=== PATIENT | male | born 1970 | race Caucasian/White ===

== ENCOUNTER 2017-11-10 06:02 | Day surgery (SDC) | payer OTHER, SELFPAY ==
[2017-11-10] VITALS (7 sets, daily range): BP systolic 126–151; BP diastolic 79–104; PULSE 68–98; RESP 16–18; TEMP 36.1–37.2; O2SAT 94–99; BMI 33.9
--- NOTE | 2017-11-10 | HERN_PTH ---
PATIENT: ROGER WELLS LOC: [facility] [place] U[place][id number] AGE/SX: 47/M ROOM: RE11/10/[address]: Dr. Vic Mcgrath MD : [id number] BED: DIS: 11/10/2017 SPEC #: [id number] RECD: 11/10/17 13:06 STATUS: CELESTINO TIFF #: [id number] ALLEN: 11/10/17 00:[address]: Vic Mcgrath DEPT: SURGICAL PATHOLOGY RECD BY: Reji Rae ENTERED: 11/10/17 13:06 SP TYPE: Hernia OTHR DR: Dr. Aiden Saez MD Tissues: HERNIA Procedures: Surgery Specimen Level II HEADER OPERATION: Hernia, incisional at umbilicus, mesh, repair PRE-OP DIAGNOSIS: Incisional hernia without obstruction or gangrene TISSUE SUBMITTED: Hernia sac and contents MICROSCOPIC DIAGNOSIS Hernia sac and contents, excision: Hernia sac with fibrosis, benign histiocytic proliferation, focal. Mild chronic inflammation. AM:shaina 11/12/17 MICROSCOPIC DESCRIPTION Slides are reviewed. GROSS DESCRIPTION Received in fixative is one container labeled with the patient's name and designated hernia sac and contents. The specimen consists of an irregular fragment of yellow-pink fibrofatty tissue measuring 2.2 x 2 x 1.3 cm. Sections reveal homogenous yellow cut surface. Sales Specialist section is submitted in one cassette. / AM:shaina 11/10/17 TC:3 CPT: 27429
--- NOTE | 2017-11-10 06:18 | EKG12_ITS ---
Test Reason : PREOP Blood Pressure : / mmHG Vent. Rate : 070 BPM Atrial Rate : 070 BPM P-R Int : 188 ms QRS Dur : 094 ms QT Int : 402 ms P-R-T Axes : 023 -26 001 degrees QTc Int : 434 ms Normal sinus rhythm Normal ECG No previous ECGs available Confirmed by CARLI DIXON, LENY ([id number]), editorial manager ELIZABETH WAGONER ([id number]) on 11/17/2017 1:09:41 PM Referred By: Vic Mcgrath Confirmed By:LENY BOYCE MD
[2017-11-10 06:45] LABS: Hematocrit 42.9 % (40-54); Hemoglobin 14.2 g/dl (13.0-16.5); Mean Corp Hgb Conc 33.1 g/gl (32-36); Mean Corpuscular Hgb 26.5 pg (27.0-32.0); Mean Corpuscular Volume 80.2 fL (80-94); Mean Platelet Vol. 9.2 fl (6.2-12.0); Platelet Count 240 K/mm3 (150-450); RBC Distribution Width CV 13.5 % (11.6-14.6); RBC Distribution Width SD 39.2 fl (35.1-43.9); Red Blood Count 5.35 M/mm3 (4.6-6.2)
[2017-11-10 06:51] LABS: Anion Gap 7 (5-15); BUN 10 mg/dL (7-18); BUN/Creat Ratio 9.7 RATIO (10-20); Calcium,Total 7.8 mg/dL (8.5-10.1); Chloride 109 mmol/L (98-107); Creatinine, Serum 1.03 mg/dL (0.70-1.30); EST Glomerular Filtration Rate 82 mL/min (>60); Est Glom Filt Rate - Afr Amer 99 mL/min (>60); Estimated Creatinine Clearance 81.11 ml/min; Glucose 97 mg/dL (74-106); Potassium 3.5 mmol/L (3.5-5.1); Sodium Level 142 mmol/L (136-145)
[2017-11-10 06:52] LABS: Scan Indicated on CBC? Y/N NO
[2017-11-10] MEDS: Cefazolin 2 GM in 0.9% Normal Saline 100 ML IV (08:10)
--- NOTE | 2017-11-10 08:14 | PCM.DC.GS ---
Discharge Diet: Light diet - advance as tolerated - if you have questions about your diet instructions, please talk to you doctor. Discharge Activity: May Not Drive - for 1 week or while taking narcotic pain medicine. May shower in (days): 1 Lifting Restrictions: 10 pounds Call your doctor if your incision/area has: Continuous Slow Oozing, Sudden Increased Bleeding, Increased Pain/ Swelling, Increased Redness, Foul Smelling Discharge Call your doctor if you observe: Fever of 101 or Higher Suture Line Care: Avoid Pulling/Pushing, Avoid Pinching/Bending Additional Dressing/Incision Instructions:: Change or remove dressing in 4 days. Leave steri-strips in place for 1 week. Allergies/Adverse Reactions: Allergies No Known Allergies Allergy (Verified 10/27/17 15:13) Medications to take at Discharge Citalopram [Celexa] 40 mg PO DAILY 03/29/16 Lisinopril [Zestril] 5 mg PO DAILY 03/29/16 Hydrocodone Bitart/Apap 5-325 [[place] 5MG-325MG] 1 tablet PO Q6H PRN PRN 3 Days #10 tablet 11/10/17 The following prescriptions were given: Hydrocodone Bitart/Apap 5-325 [[place] 5MG-325MG] 1 tablet PO Q6H PRN PRN 3 Days #10 tablet PRN Reason: Pain Primary Care Physician: Aiden Saez MD [Primary Care Provider] - Test Results: Please Follow Up With: Vic Mcgrath MD - [phone] When: Call to make an appointment to be seen in about 10 days.
[2017-11-10] MEDS: Bupivacaine Mpf 0.5% 30 ML VIAL (08:29)
--- NOTE | 2017-11-10 08:54 | PCM.OPRPT ---
Problem List (1) Incisional hernia Status: Acute Qualifiers: Report of Operation Date of Procedure: 11/10/17 Pre-Operative Diagnosis: Ventral incisional umbilical hernia Post-Operative Diagnosis: Same Surgery/Procedure Performed:: Ventral incisional umbilical herniorrhaphy with 4.[address] mesh reference #[id number]. Lot number [id number]. Expiry date 12/05/2018. Description of Surgical Findings:: Timeout and informed consent was obtained. 47-year-old gent was taken the operating. He was placed on the table. He underwent general endotracheal intubation and anesthesia. The abdomen was sterilely prepped draped. Ancef 2 g given intravenously preoperatively. He had a previous transverse infraumbilical incision. The skin scar was sharply excised. It was inspected consistent with scar and was discarded. Sharp dissection carried down through the substance tissue. The hernia was identified it had incarcerated preperitoneal fatty contents. This was dissected free and submitted as a specimen. The defect measures approximately a centimeter and a half in diameter. A 4.[address] mesh was inserted. It nicely unfolded. The tails were secured with interrupted 0 Nurolon. The fascia was approximated with the same. The fascia and subcu tissues were anesthetized with 0.5% Marcaine a total of 20 cc was used. The subdermal edges were approximated with interrupted 4 Monocryl subdermal stitches. Topical glue then cottonball Telfa OpSite dressing applied. Sponge and instrument and needle counts were reported the surgeon to be correct. Specimen includes hernia and sac and contents. Blood loss minimal. Drains none. Vic Mcgrath M.D., F.A.C.S. Type of Anesthesia:: General Anesthesiologist: Tang Eric
--- NOTE | 2017-11-10 08:59 | OP.PCM_ITS ---
Problem List (1) Incisional hernia Status: Acute Qualifiers: Report of Operation Date of Procedure: 11/10/17 Pre-Operative Diagnosis: Ventral incisional umbilical hernia Post-Operative Diagnosis: Same Surgery/Procedure Performed:: Ventral incisional umbilical herniorrhaphy with 4.[address] mesh reference #[id number]. Lot number [id number]. Expiry date 12/05/2018. Description of Surgical Findings:: Timeout and informed consent was obtained. 47-year-old gent was taken the operating. He was placed on the table. He underwent general endotracheal intubation and anesthesia. The abdomen was sterilely prepped draped. Ancef 2 g given intravenously preoperatively. He had a previous transverse infraumbilical incision. The skin scar was sharply excised. It was inspected consistent with scar and was discarded. Sharp dissection carried down through the substance tissue. The hernia was identified it had incarcerated preperitoneal fatty contents. This was dissected free and submitted as a specimen. The defect measures approximately a centimeter and a half in diameter. A 4.[address] mesh was inserted. It nicely unfolded. The tails were secured with interrupted 0 Nurolon. The fascia was approximated with the same. The fascia and subcu tissues were anesthetized with 0.5% Marcaine a total of 20 cc was used. The subdermal edges were approximated with interrupted 4 Monocryl subdermal stitches. Topical glue then cottonball Telfa OpSite dressing applied. Sponge and instrument and needle counts were reported the surgeon to be correct. Specimen includes hernia and sac and contents. Blood loss minimal. Drains none. Vic Mcgrath M.D., F.A.C.S. Type of Anesthesia:: General Anesthesiologist: Tang Eric
== END 2017-11-10 10:27 | disposition home or self-care (01) ==
LOC: SDC 06:02 → AC 06:03
PROVIDERS: Family Provider Family Medicine; PCP Family Medicine; Visit Provider Surgery
PROC: (CPT 49560; principal; 2017-11-10 07:45)
DX: K43.2 Incisional hernia without obstruction or gangrene (principal); F32.9 Major depressive disorder, single episode, unspecified; F41.9 Anxiety disorder, unspecified; F43.10 Post-traumatic stress disorder, unspecified; Z79.899 Other long term (current) drug therapy; I10 Essential (primary) hypertension; K21.9 Gastro-esophageal reflux disease without esophagitis; M19.90 Unspecified osteoarthritis, unspecified site; F17.290 Nicotine dependence, other tobacco product, uncomplicated
CPT/HCPCS: 00832; 49560; 80048; 85027; 88302; 93005; J7120; C1781; J2405

== ENCOUNTER 2023-02-28 20:41 | Emergency (ER) | payer OTHER, MEDICARE, SELFPAY ==
[2023-02-28 20:42] VITALS: BP 152/77; PULSE 94; RESP 15; TEMP 36.8; O2SAT 97; BMI 38.5
--- NOTE | 2023-02-28 20:52 | EDS_ITS ---
HPI <Edgard Marinelli MD - Last Filed: 02/28/23 21:42> History of Present Illness Chief Complaint: Lower Extremity Injury Narrative Narrative: 52-year-old male past medical history of hypertension, presents with laceration to his right anterior tibial area that he sustained approximately 5 hours ago. He states he was outside doing yard work and using a machete. The tip of the blade accidentally entered his lower extremity. He went inside, cleansed the area, and also shaved his leg in order to try and get a waterproof Band-Aid on it but it continued to bleed. His last tetanus immunization was last year. He denies other injury. He presents because of the laceration on his right lower extremity. He does not take any blood thinners. Tetanus Immunization: <5 years (Last year) PFS <Edgard Marinelli MD - Last Filed: 02/28/23 21:42> FOR[facility]LY [facility] Medical History Anxiety Chronic back pain Depression GERD (gastroesophageal reflux disease) HTN (hypertension) Incisional hernia Osteoarthritis Home Medications citalopram 20 mg tablet 40 mg PO DAILY 03/29/16 [History Last Taken 03/28/16] lisinopril 5 mg tablet 40 mg PO DAILY 03/29/16 [History Last Taken 12/02/16 10:00 5 MG] Allergy/AdvReac Type Severity Reaction Status Date / Time No Known Allergies Allergy Verified 02/28/23 20:44 Family History Mother Asthma Surgical History S/P appendectomy (~03/2016) s/p lipoma removal S/P rotator cuff repair Social History Smoking Status: Former smoker ROS <Edgard Marinelli MD - Last Filed: 02/28/23 21:42> ROS ED ROS Narrative Constitutional: No fever, no chills. HEENT: No sore throat. No neck pain. No loss of vision. No rhinorrhea. Cardiovascular: No chest pain. No palpitations. No pedal edema. Respiratory: No cough, no shortness of breath. Abdominal: No abdominal pain. No nausea. No vomiting. Genitourinary: No dysuria. No hematuria. Musculoskeletal: No myalgias. No arthralgias. Neurologic: No headaches. No dizziness. No lightheadedness. Skin: No rash. No change in color. Laceration to right lower extremity distal to the kneecap. Psychiatric: No depression. No anxiety. EXAM <Edgard Marinelli MD - Last Filed: 02/28/23 21:42> Physical Exam Narrative Exam Narrative: Afebrile. Vital signs noted. HEENT: Normocephalic. Atraumatic. PERRL, EOMI. Neck soft and supple. No point tenderness or step off. Cardiovascular: Regular rate and rhythm. No murmurs, rubs, or gallops appreciated. Respiratory: No tachypnea. Lungs clear to auscultation bilaterally. Gastrointestinal: Abdomen soft, nontender, with normoactive bowel sounds. No rebound or guarding. Neurological: Awake. Alert. Nonfocal, nonlateralizing. Skin: No rash. Normal color. No pallor. 1.7 cm laceration to anterior tibial area on right lower extremity, more to the medial aspect. No active bleeding. Musculoskeletal: No pedal edema. Full range of motion extremities. Const Vital Signs: 02/28/23 20:42 Temperature 98.2 F Temperature Source Temporal Pulse Rate 94 Respiratory Rate 15 Blood Pressure 152/77 H Blood Pressure Mean 102 Pulse Ox 97 Oxygen Delivery Method Room Air <Dr. Dean Priest MD - Last Filed: 02/28/23 21:34> Physical Exam Const Vital Signs: 02/28/23 20:42 Temperature 98.2 F Temperature Source Temporal Pulse Rate 94 Respiratory Rate 15 Blood Pressure 152/77 H Blood Pressure Mean 102 Pulse Ox 97 Oxygen Delivery Method Room Air [facility] <Edgard Marinelli MD - Last Filed: 02/28/23 21:42> [facility] Narrative Medical decision making narrative: Patient has a laceration to his right lower extremity. His tetanus immunization is current. He is within the 6-hour window for closure. I do not feel x-rays are indicated as I do not feel that it struck bone and is more of a soft tissue injury. He is neurovascularly intact distally on examination. He was informed of the risk of infection and scarring and acknowledges an understanding. Wound closure performed by Dr. Alexis Priest. See procedure note for details. Patient will be discharged to follow-up with his primary care physician for yin ture removal in 7 to 10 days. I do not feel he requires narcotic analgesics, or antibiotics. Disposition is discharged home in stable condition. Differential Diagnosis Differential Diagnosis: Not applicable. Procedures <Dr. Dean Priest MD - Last Filed: 02/28/23 21:34> Lacerations Right lower leg laceration repair:: Length: 1.5 in Depth: Sub Q Shape: Linear Laceration repair: Lidocaine, Local and Skin sutures Number of Sutures/Procious: 3 Suture Information: Ethilon, Simple and 4-0 Comment: Right lower leg laceration. 1/2 to 2 inches in length. Involve the skin and subcu tissue. Local anesthetized with lidocaine. Cleaned with Shur-Clens. Washed and irrigated with saline. Explored. No foreign body. No signs of infection. Closed using 3 simple interrupted 4-0 Ethilon sutures. Proper hemostasis wound closure obtained. Patient tolerated procedure well. He was instructed on wound care and suture removal. Discharge Plan Triage Chief Complaint: Lower Extremity Injury ED Provider: Edgard Marinelli Dx/Rx/DC Orders Clinical Impression: Laceration of right lower leg Instructions: ED Laceration Extremity Prescriptions: No Action citalopram 20 MG tablet 40 mg PO DAILY Patient Comments: antidepressant lisinopril 5 MG tablet 40 mg PO DAILY Patient Comments: blood pressure Primary Care Provider: Aiden Saez Referrals: Aiden Saez MD [Primary Care Provider] - 10 Day for suture removal Activity Restrictions/Additional Instructions: Keep the area dry and clean. If it gets wet just dry off thoroughly. Stitches out in 10 days. Keep the area clean. Clean daily with soap and water. Will peroxide and water. Apply antibiotic ointment. Watch for signs of infection if seen return here. Disposition Disposition: Home, Self Care
[2023-02-28] MEDS: Lidocaine 1% (20 ml mdv) 20 ML Vial INFILT (20:58)
== END 2023-02-28 21:42 | disposition home or self-care (01) ==
PROVIDERS: Emergency Provider Emergency Medicine; PCP Family Medicine; Visit Provider Emergency Medicine
DX: S81.811A Laceration without foreign body, right lower leg, initial encounter (principal); Z87.891 Personal history of nicotine dependence; I10 Essential (primary) hypertension; W26.8XXA Contact with other sharp object(s), not elsewhere classified, initial encounter; Y93.89 Activity, other specified; Y92.096 Garden or yard of other non-institutional residence as the place of occurrence of the external cause; Z79.899 Other long term (current) drug therapy; F32.A Depression, unspecified; Z90.49 Acquired absence of other specified parts of digestive tract
CPT/HCPCS: 12001; 99283

== ENCOUNTER 2023-11-24 12:58 | Emergency (ER) | payer OTHER, MEDICARE, SELFPAY ==
[2023-11-24 13:00] VITALS: BP 136/99; PULSE 97; RESP 18; TEMP 36.7; O2SAT 97; BMI 38.2
--- NOTE | 2023-11-24 13:35 | CT_ITS ---
STUDY: CT BRAIN WITHOUT CONTRAST REASON FOR EXAM: Male, 53 years old. History of fall from a 10 foot height. RADIATION DOSAGE (If Supplied By Facility): CTDIvol = ( 47.06 ) mGy, DLP = ( 907.97 ) mGycm TECHNIQUE: Transaxial CT imaging of the brain was performed without administration of intravenous contrast material. Individualized dose optimization techniques were used for this CT. COMPARISON: No relevant priors. FINDINGS: Normal soft tissue structures. Normal calvarium. Normal size ventricles and extra-axial spaces for the patient''s age. Normal white matter tracts of the cerebral hemispheres. Normal basal ganglia and thalami. Normal brainstem. Normal cerebellum. There is no intracranial hemorrhage. There are no findings of an acute ischemic infarction. Normal visualized paranasal sinuses. CT/Brain/Head without Contrast IMPRESSION: Normal unenhanced CT scan of the brain. Electronically Signed: Oscar Go MD at 14:16 EDT ,
--- NOTE | 2023-11-24 13:35 | CT_ITS ---
STUDY: CT CERVICAL SPINE WITHOUT CONTRAST REASON FOR EXAM: Male, 53 years old. Fall from a 10 foot height. RADIATION DOSAGE (If Supplied By Facility): CTDIvol = ( 20.08 ) mGy, DLP = ( 384.38 ) mGycm TECHNIQUE: High resolution transaxial imaging was performed without contrast material. Sagittal and coronal images were reconstructed. Individualized dose optimization techniques were used for this CT. COMPARISON: None FINDINGS: Normal craniovertebral junction. Normal anterior atlantoaxial articulation. Normal odontoid process. There is straightening of the normal cervical lordosis. Normal vertebral bodies and posterior osseous elements. C2-3: Normal endplates. Normal disc height and morphology. Normal central canal and intervertebral neuroforamina. C3-4: Normal endplates. Normal disc height and morphology. Normal central canal and intervertebral neuroforamina. C4-5: Mild degree of spondylosis. Mild degree of disc space narrowing. Mild uncovertebral arthrosis. No significant stenosis is seen. C5-6: Moderate degree of disc space narrowing. Spondylosis. Mild degree of bilateral neural foraminal stenosis. C6-7: Moderate degree of disc space narrowing and spondylosis. Mild lateral neural foraminal stenosis. C7-T1: Normal endplates. Normal disc height and morphology. Normal central canal and intervertebral neuroforamina. Normal visualized soft tissue structures. CT/Spine Cervical without Contras IMPRESSION: Multilevel degenerative changes, as described above. Electronically Signed: Oscar Go MD at 14:21 EDT ,
--- NOTE | 2023-11-24 13:35 | CT_ITS ---
STUDY: CT CHEST WITHOUT CONTRAST REASON FOR EXAM: Male, 53 years old. Fall from a 10 foot height. RADIATION DOSAGE (If Supplied By Facility): CTDIvol = ( 22.71 ) mGy, DLP = ( 898.84 ) mGycm TECHNIQUE: Transaxial imaging was performed without the administration of intravenous contrast material. Multiplanar coronal and sagittal images were reformatted. Individualized dose optimization techniques were used for this CT. COMPARISON: No relevant priors. FINDINGS: CHEST The lungs are normal. There is no demonstrated pleural abnormality. Normal heart and pericardium. No significant coronary artery calcification is seen. Normal mediastinum. Normal hilar regions. Normal unenhanced pulmonary arteries. Normal aorta arch and descending thoracic aorta. There are multi-level degenerative changes of the thoracic spine. Fatty infiltration of the liver. CT/Chest without Contrast IMPRESSION: No acute abnormality is seen. Electronically Signed: Oscar Go MD at 14:18 EDT ,
--- NOTE | 2023-11-24 13:36 | EX.ED.GENINJ ---
HPI History of Present Illness Chief Complaint: Trauma Detail of Chief Complaint: Fall off ladder Informant: patient Narrative Narrative: Patient presents the emergency department with complaint of falling off a ladder yesterday around 7 PM. Patient states that he was working on his carport and followed by 9 to 10 feet onto some gravel and some 2 by fours below. Denies loss of consciousness. Patient does complain of headache. Has pain at the base of his neck. He complains of right shoulder pain and left elbow pain. Denies blood in his urine. Denies abdominal pain. He has been ambulating. Patient not anticoagulated. [facility] Medical History Anxiety Chronic back pain Depression GERD (gastroesophageal reflux disease) HTN (hypertension) Incisional hernia Osteoarthritis Home Medications ?Medication ?Instructions ?Recorded ?Last Taken ?Type citalopram 20 mg tablet 40 mg PO DAILY 03/29/16 03/28/16 History lisinopril 5 mg tablet 40 mg PO DAILY 03/29/16 12/02/16 10:00 History 5 MG Allergy/AdvReac Type Severity Reaction Status Date / Time pollen extracts (pollens) Allergy Intermediate SNEEZING Verified 11/24/23 12:59 Family History Mother Asthma Surgical History S/P appendectomy (~03/2016) s/p lipoma removal S/P rotator cuff repair Social History Smoking Status: Former smoker ROS ROS ED Review of Systems ROS Unobtainable: other Constitutional Constitutional ED: Reports lethargy; Denies chills, fever(s), sweats or weight loss Eyes Eyes: Denies blurry vision, change in vision or diplopia ENT ENT ED: Denies rhinorrhea or sore throat Cardiovascular Cardiovascular: Denies chest pain, orthopnea or racing heartbeat Respiratory/Chest Respiratory/Chest: Denies cough, dyspnea, dyspnea on exertion, orthopnea or sputum Gastrointestinal Gastrointestinal: Denies abdominal pain, diarrhea, nausea or vomiting Genitourinary Genitourinary ED: Denies dysuria, hematuria or urinary frequency Musculoskeletal Musculoskeletal: Reports back pain, neck pain and other Details: Right shoulder pain and left elbow pain ; Denies arthralgias or myalgias Integumentary Denies abscess, Abrasions or rash Neurologic Neurologic: Reports headache(s); Denies weakness Psychiatric Psychiatric: Denies anxiety, depression or suicidal thoughts Endocrine Endocrinology: Denies polydipsia, polyphagia or polyuria Hematologic/Lymphatic Hematologic/Lymphatic: Denies easy bleeding, easy bruising or lymphadenopathy Allergic/Immunologic Allergic/Immunologic ED: Denies mouth swelling, tongue swelling or urticaria EXAM Physical Exam Const Vital Signs: 11/24/23 13:00 11/24/23 13:09 Temperature 98.1 F Temperature Source Temporal Pulse Rate 97 Respiratory Rate 18 Respiratory Effort Normal Non-Labored Respiratory Depth Normal Respiratory Pattern Normal Blood Pressure 136/99 H Blood Pressure Mean 111 Pulse Ox 97 Oxygen Delivery Method Room Air Room Air Positive well nourished and well developed General Appearance ED: well developed and NAD HEENT Reports TM's clear and moist mucous membranes normocephalic and atraumatic; Negative for trauma or tenderness Tympanic Membrane ED: Yes TM's clear Eyes PERRL and EOMs intact bilaterally General Eye ED: Negative for pale conjunctiva or scleral icterus Neck no lymphadenopathy, supple and no JVD General: Negative for tenderness Chest Wall inspection of chest normal and palpation of chest normal Chest: Negative for tenderness Resp normal respiratory effort and clear to auscultation bilaterally Effort and Inspection: Negative for respiratory distress or pain with movement Auscultation: Negative for rhonchi, wheezes or diminished lung sounds Cardio regular rate, regular rhythm, S1 normal heart sound, S2 normal heart sound and no murmurs Peripheral Pulses: pulses 2+ throughout GI normal to inspection, nondistended, normoactive bowel sounds, soft to palpation, non-tender, non-distended and no masses Back/Spine no CVA tenderness and no thoracic nor lumbar tenderness Back/Spine Narrative: Patient with tenderness palpation over the right scapula that seems to reproduce a lot of his pain. No significant tenderness over the thoracic or lumbar spine. Patient does have some mild tenderness at the base of the neck and C-spine. No bony step-offs or depressions. Extremity normal to inspection Extremity Narrative: Tenderness palpation over the right shoulder diffusely. There is no ecchymosis or bruising or obvious deformity. Neurovascular intact distally. Slightly decreased range of motion secondary to pain. Left elbow-patient has some diffuse soft tissue swelling over the olecranon with superficial abrasion. Mild diffuse tenderness about the elbow. Good range of motion. Mild tenderness with pronation and supination. General Extremety ED: Negative for edema General Extremity: Negative for edema Neuro oriented x3, CN's II-XII intact bilaterally, no sensory deficits noted and gait normal Sensorium / Orientation: awake, alert, oriented to person, oriented to place and oriented to time Motor Exam: strength 5/5 throughout and strength abnormal Psych mental status grossly normal Skin no rashes or lesions noted and no wounds MDM MDM MDM Narrative Medical decision making narrative: Patient presents the emergency department after a fall last evening. Complains of head pain as well as neck pain and right shoulder and left elbow pain as well as right scapula and back pain. CT scan of the brain without contrast obtained was unremarkable. CT scan of the cervical spine showed no fractures only degenerative changes. Patient had a CT chest without contrast that showed no evidence of for traumatic injury. We obtained x-rays of his right shoulder which did not show any fractures or dislocations. X-rays of the left elbow were negative for fracture or dislocation. This point patient clinically looks well. Will discharge to home. He does not want thing for pain. Advised to follow-up with his primary care physician within next 5 to 7 days. Radiography Diagnostic Testing: Clinical Impression(s) from Imaging Studies Brain CT 11/24/23 13:35 IMPRESSION: Normal unenhanced CT scan of the brain. Electronically Signed: Oscar Go MD at 14:16 EDT , Cervical Spine CT 11/24/23 13:35 IMPRESSION: Multilevel degenerative changes, as described above. Electronically Signed: Oscar Go MD at 14:21 EDT , Chest CT 11/24/23 13:35 IMPRESSION: No acute abnormality is seen. Electronically Signed: Oscar Go MD at 14:18 EDT , Elbow X-Ray 11/24/23 13:58 IMPRESSION: Normal x-ray examination of the elbow. Electronically Signed: Oscar Go MD at 14:19 EDT , Shoulder X-Ray 11/24/23 13:58 IMPRESSION: Normal x-ray examination of the shoulder. Electronically Signed: Oscar Go MD at 14:18 EDT , 2 view x-rays of right shoulder obtained interpreted by myself as no evidence of fracture dislocation. Radiology in agreement. Three-view x-rays of the left elbow obtained interpreted by myself as no evidence of fracture or dislocation. Radiology in agreement. Discharge Plan Triage Chief Complaint: Trauma ED Provider: Carmelita Heller Dx/Rx/DC Orders Clinical Impression: Fall, Closed head injury, Contusion of elbow, left, Contusion of back, Contusion of right shoulder Instructions: ED Contusion, Elbow, ED Back Contusion, ED Contusion, Upper Extremity, ED Head Injury (Adult) Prescriptions: No Action citalopram 20 MG tablet 40 mg PO DAILY Patient Comments: antidepressant lisinopril 5 MG tablet 40 mg PO DAILY Patient Comments: blood pressure Primary Care Provider: Aiden Saez Referrals: Aiden Saez MD [Primary Care Provider] - 5-7 Days Print Language: Turkmen Disposition Disposition: Home, Self Care
--- NOTE | 2023-11-24 13:58 | RAD_ITS ---
STUDY: X-RAY - LEFT ELBOW REASON FOR EXAM: Male, 53 years old. Fall TECHNIQUE: 3 view(s) of the elbow. COMPARISON: None. FINDINGS: Normal visualized humerus, radius and ulna. Normal radiocapitellar and ulnotrochlear articulations. The soft tissue structures are unremarkable. RAD/Elbow min 3 Views IMPRESSION: Normal x-ray examination of the elbow. Electronically Signed: Oscar Go MD at 14:19 EDT ,
--- NOTE | 2023-11-24 13:58 | RAD_ITS ---
STUDY: X-RAY - RIGHT SHOULDER REASON FOR EXAM: Male, 53 years old. Fall TECHNIQUE: 2 view(s) of the shoulder. COMPARISON: None. FINDINGS: Normal glenohumeral articulation. Normal acromioclavicular joint. Normal acromion. Normal humeral head and visualized proximal humerus. The soft tissue structures are unremarkable. Normal visualized pulmonary apex. RAD/Shoulder min 2 Views IMPRESSION: Normal x-ray examination of the shoulder. Electronically Signed: Oscar Go MD at 14:18 EDT ,
== END 2023-11-24 14:58 | disposition home or self-care (01) ==
PROVIDERS: Emergency Provider Emergency Medicine; PCP Family Medicine; Visit Provider Emergency Medicine
DX: S09.90XA Unspecified injury of head, initial encounter (principal); W11.XXXA Fall on and from ladder, initial encounter; S20.229A Contusion of unspecified back wall of thorax, initial encounter; I10 Essential (primary) hypertension; Z87.891 Personal history of nicotine dependence; S40.011A Contusion of right shoulder, initial encounter; S50.02XA Contusion of left elbow, initial encounter; Y93.89 Activity, other specified; Z79.899 Other long term (current) drug therapy; F32.A Depression, unspecified; Z90.49 Acquired absence of other specified parts of digestive tract
CPT/HCPCS: 70450; 71250; 72125; 73030; 73080; 99282

== ENCOUNTER 2024-01-25 23:30 | Emergency (ER) | payer OTHER, MEDICARE, SELFPAY ==
[2024-01-25 23:32] VITALS: BP 163/101; PULSE 103; RESP 20; TEMP 36.4; O2SAT 98; BMI 38.2
--- NOTE | 2024-01-26 00:12 | RAD_ITS ---
EXAM: XR CHEST, 2 VIEWS CLINICAL INDICATION: cough TECHNIQUE: Frontal and lateral views of the chest. COMPARISON: No relevant prior studies available. FINDINGS: LUNGS AND PLEURAL SPACES: Lungs are not hyperinflated. Lateral view shows mild peribronchial cuffing. No consolidation or edema. No pneumothorax. No effusion. HEART: Normal heart size and pulmonary vasculature. MEDIASTINUM: Central airways and mediastinal contour are unremarkable. BONES/JOINTS: Midthoracic degenerative spurring. No acute fracture. SOFT TISSUES: Unremarkable. RAD/Chest PA and Lateral IMPRESSION: Peribronchial cuffing, indicating bronchial wall inflammation/bronchitis. No pneumonia. Electronically Signed: Steve Rojas MD at 0:48 EDT ,
[2024-01-26 00:16] VITALS: O2SAT 98
[2024-01-26 00:24] VITALS: BP 152/93; PULSE 99; RESP 18; O2SAT 98
[2024-01-26 00:33] VITALS: BP 152/93; PULSE 99; RESP 18; TEMP 37.3; O2SAT 98
[2024-01-26 01:00] VITALS: BP 135/81; PULSE 92; RESP 18; TEMP 37.3; O2SAT 97
--- NOTE | 2024-01-26 01:03 | EX.ED.DYSGE1 ---
HPI History of Present Illness Chief Complaint: Cough Informant: patient Narrative Narrative: Patient is a 53-year-old male with past medical history of hypertension and GERD. He denies any history of smoking or vaping. He denies any history of lung disorders such as asthma or COPD. He states he has had cough and congestion for approximately 3 and half weeks. He states he was seen in urgent care and tested for COVID which was negative. He reports has been taking [id number] medications but there is been no symptom improvement with concern for potential missed infection he comes in for evaluation [facility] Medical History Incisional hernia Anxiety Depression HTN (hypertension) Chronic back pain Osteoarthritis GERD (gastroesophageal reflux disease) Home Medications ?Medication ?Instructions ?Recorded ?Last Taken ?Type amlodipine 5 mg tablet 5 mg PO DAILY 01/26/24 Unknown History azithromycin 250 mg tablet See Rx Instructions PO .COMPLEX #6 01/26/24 Unknown Rx (Zithromax Z-Lie) tabs citalopram 40 mg tablet 40 mg PO DAILY 01/26/24 Unknown History lisinopril 40 mg tablet 40 mg PO DAILY 01/26/24 Unknown History metformin 500 mg tablet 500 mg PO DAILY 01/26/24 Unknown History prednisone 20 mg tablet 40 mg (2 x 20 mg) PO DAILY 5 days 01/26/24 Unknown Rx #10 tabs sildenafil 50 mg tablet 50 mg PO DAILY PRN sexual activity 01/26/24 Unknown History Allergy/AdvReac Type Severity Reaction Status Date / Time pollen extracts (pollens) Allergy Intermediate SNEEZING Verified 01/25/24 23:33 Family History Mother Asthma Surgical History S/P appendectomy (~03/2016) s/p lipoma removal S/P rotator cuff repair Social History Smoking Status: Former smoker ROS ROS ED Constitutional Constitutional ED: Denies chills or fever(s) Eyes Eyes: Denies blurry vision or change in vision ENT ENT ED: Reports rhinorrhea and sore throat Cardiovascular Cardiovascular: Denies chest pain Respiratory/Chest Respiratory/Chest: Reports cough and dyspnea Gastrointestinal Gastrointestinal: Denies abdominal pain, diarrhea, nausea or vomiting Genitourinary Genitourinary ED: Denies dysuria Musculoskeletal Musculoskeletal: Reports myalgias Integumentary Denies rash Neurologic Neurologic: Reports headache(s) Hematologic/Lymphatic Hematologic/Lymphatic: Denies easy bleeding or easy bruising Allergic/Immunologic Allergic/Immunologic ED: Denies mouth swelling or tongue swelling EXAM Physical Exam Const Vital Signs: 01/25/24 23:32 01/26/24 00:16 01/26/24 00:24 Temperature 97.5 F L Temperature Source Temporal Pulse Rate 103 H 99 Respiratory Rate 20 H 18 Respiratory Effort Normal Non-Labored Respiratory Depth Normal Respiratory Pattern Tachypnea Blood Pressure 163/101 H 152/93 H Blood Pressure Mean 121 112 Pulse Ox 98 98 Oxygen Delivery Method Room Air Room Air Room Air 01/26/24 00:33 01/26/24 01:00 01/26/24 01:07 Temperature 99.2 F H 99.1 F 99.1 F Temperature Source Oral Oral Pulse Rate 99 92 94 Respiratory Rate 18 18 18 Respiratory Effort Respiratory Depth Respiratory Pattern Blood Pressure 152/93 H 135/81 H 135/81 H Blood Pressure Mean 112 99 99 Pulse Ox 98 97 97 Oxygen Delivery Method Room Air Room Air Positive well nourished, well developed and obese General Appearance ED: well developed Nutritional Appearance: obese HEENT HEENT Narrative: Nasal mucosa is hyperemic and boggy with enlarged inferior nasal turbinates left greater than right No tongue or lip swelling no oral lesions no airway edema or compromise. There is cobblestoning noted in the posterior pharynx consistent with sinus drainage No secondary changes to suggest infection Eyes PERRL and EOMs intact bilaterally General Eye ED: Negative for pale conjunctiva or scleral icterus Neck supple and no JVD Chest Wall palpation of chest normal Chest Narrative: No bony deformity or crepitance noted Resp normal respiratory effort and clear to auscultation bilaterally Resp Narrative: No nasal flaring retractions tachypnea or accessory muscle use Cardio regular rate and regular rhythm Extremity normal to inspection Extremity Narrative: No asymmetric edema no pitting edema negative Homans' sign bilaterally Neuro oriented x3 and CN's II-XII intact bilaterally Sensorium / Orientation: alert Psych mental status grossly normal Skin no rashes or lesions noted MDM MDM MDM Narrative Medical decision making narrative: Patient arrived to the ER hypertensive but has a past medical history of this. He reported 3 weeks of persistent cough and is already been negative on a viral swab. Differential diagnosis is for viral infection such as COVID versus influenza versus RSV versus rhinovirus. There is also concern for pneumonia and/or congestive heart failure. As the patient is not in respiratory distress and he is not hypoxic I do not feel the need for laboratory evaluation but simply a chest x-ray to check for potential pneumonia. Chest x-ray revealed no acute lung disease indicating patient's symptoms are most likely viral in nature. However as his chest x-ray does show bronchitis changes and symptoms have been present for 3 and half weeks I will trial him on a Z-Lei to see if this helps reduce symptoms. As he is not hypoxic or requiring supplemental oxygen and not showing any physical exam findings of respiratory distress there is no need for further workup and he is otherwise safe for discharge History & Record Review Discussion w/independent historian: Patient Radiography Diagnostic Testing: Clinical Impression(s) from Imaging Studies Chest X-Ray 01/26/24 00:12 IMPRESSION: Peribronchial cuffing, indicating bronchial wall inflammation/bronchitis. No pneumonia. Electronically Signed: Steve Rojas MD at 0:48 EDT , Chest x-ray as interpreted by the emergency medicine physician reveals inflammatory changes/peribronchial cuffing consistent with bronchitis without acute infiltrate or pneumothorax Discharge Plan Triage Chief Complaint: Cough ED Provider: Norberto Corbett Dx/Rx/DC Orders Clinical Impression: Bronchitis, Hypertension Instructions: ED Upper Resp Infec Abx Tx Prescriptions: New prednisone 20 mg tablet 40 mg PO DAILY 5 Days Qty: 10 0RF azithromycin [Zithromax Z-Lei] 250 mg tablet See Rx Instructions .ROUTE .COMPLEX Qty: 6 0RF Rx Instructions: For 250 mg dose pack: take 500 mg today (day 1), then 250 mg for 4 days (days 2-5) No Action metformin 500 mg tablet 500 mg PO DAILY citalopram 40 mg tablet 40 mg PO DAILY sildenafil 50 mg tablet 50 mg PO DAILY PRN (Reason: sexual activity) amlodipine 5 mg tablet 5 mg PO DAILY lisinopril 40 mg tablet 40 mg PO DAILY Primary Care Provider: Aiden Saez Referrals: Aiden Saez MD [Primary Care Provider] - Print Language: Cymraes Disposition Disposition: Home, Self Care Discharge Date/Time: 01/26/24 01:18
[2024-01-26 01:07] VITALS: BP 135/81; PULSE 94; RESP 18; TEMP 37.3; O2SAT 97
[2024-01-26] MEDS: predniSONE 20 MG Tablet 40 MG PO (01:09)
[2024-01-26] MEDS: Azithromycin 250 MG Tablet 500 MG PO (01:09)
== END 2024-01-26 01:18 | disposition home or self-care (01) ==
PROVIDERS: Emergency Provider Emergency Medicine; PCP Family Medicine; Visit Provider Emergency Medicine
DX: J40 Bronchitis, not specified as acute or chronic (principal); I10 Essential (primary) hypertension; M54.9 Dorsalgia, unspecified; G89.29 Other chronic pain; K21.9 Gastro-esophageal reflux disease without esophagitis; Z87.891 Personal history of nicotine dependence
CPT/HCPCS: 71046; 99283